=== PATIENT | female | born 1995 | race Hispanic/Latino ===

== ENCOUNTER 2017-12-24 16:37 | Inpatient (IN) | payer MEDICAID, OTHER ==
[2017-12-04 18:22] VITALS: BMI 32.8
[2017-12-24] MEDS ORDERED: Lactated Ringer's 1,000 ML IV ONE ×2 (17:29→19:01)
[2017-12-24 18:07] LABS: BASO % 0.2 % (0.0-2.0); EOS # 0.1 K/uL (0.0-0.7); EOS % 0.7 % (0.0-4.0); HEMOGLOBIN 11.2 g/dL (12.0-16.0); LYMPH # 2.1 K/uL (1.0-4.3); LYMPH % 19.9 % (20.0-40.0); MEAN CELL VOLUME 91.1 fl (81.0-99.0); MEAN CORPUSCULAR HEMOGLOBIN 31.2 pg (27.0-31.0); MEAN CORPUSCULAR HGB CONC 34.2 g/dL (33.0-37.0); MEAN PLATELET VOLUME 9.4 fl (7.2-11.7); MONO # 0.8 K/uL (0.0-0.8); NEUT # 7.5 K/uL (1.8-7.0); NEUT % 71.2 % (50.0-75.0); RBC 3.58 Mil/uL (3.80-5.20); RED CELL DISTRIBUTION WIDTH 13.3 % (11.5-14.5); WHITE BLOOD COUNT 10.5 K/uL (4.8-10.8)
[2017-12-24 18:27] LABS: SQUAMOUS EPITHIAL 18 /hpf (0-5); URINE BILIRUBIN NEGATIVE (NEGATIVE); URINE BLOOD NEGATIVE (NEGATIVE); URINE CLARITY CLOUDY (Clear); URINE COLOR AMBER (YELLOW); URINE GLUCOSE (UA) NEG (Normal); URINE LEUKOCYTE ESTERASE NEG Leu/uL (Negative); URINE PROTEIN NEGATIVE (NEGATIVE)
[2017-12-24] MEDS ORDERED: Magnesium Sulfate 4 gm/100 ml 4 GM/100 ML BAG IVPB ONE ×2 (19:34→22:02)
[2017-12-24] MEDS ORDERED: Magnesium Sulfate 4 gm/100 ml 4 GM/100 ML BAG IV ONE (19:41)
[2017-12-24] MEDS ORDERED: Magnesium Sul 40GM/1L SW 40 GM/1,000 ML ML IV ONE (19:48)
[2017-12-24] MEDS: Betamethasone Soluspan 30 mg/5mL Inj Susp IM SCH (21:12)
[2017-12-24] MEDS: Lactated Ringer's 1,000 ML IV SCH (22:00)
[2017-12-24 22:32] VITALS: PULSE 80
[2017-12-25] MEDS: Lactated Ringer's 1,000 ML IV SCH (11:29)
--- NOTE | 2017-12-25 11:45 | US ---
Date of service: 12/24/2017 PROCEDURE: Limited pelvic ultrasound HISTORY: Cervical Length COMPARISON: 09/22/2015. TECHNIQUE: Standard protocol for this study/examination. FINDINGS: Closed cervix measuring 3.84 cm in length. IMPRESSION: Cervical length 3.84 cm. Closed cervix. Concordant findings (preliminary report) provided by [facility].
[2017-12-25] MEDS: Betamethasone Soluspan 30 mg/5mL Inj Susp IM SCH (20:17)
[2017-12-26 00:48] VITALS: BP 136/75; RESP 20; TEMP 97.7; O2SAT 99
== END 2017-12-25 20:30 | disposition home or self-care (01) | DRG 886 ==
LOC: H.EROB2 16:37 → H.L&D 20:19
PROVIDERS: ADMIT Obstetrics & Gynecology Gynecology; ATTEND Obstetrics & Gynecology Gynecology
PROC: 4A1HXCZ Monitoring of Products of Conception, Cardiac Rate, External Approach (ICD-10-PCS; principal; 2017-12-24)
DX: O34.211 Maternal care for low transverse scar from previous cesarean delivery (principal); O46.93 Antepartum hemorrhage, unspecified, third trimester; N85.8 Other specified noninflammatory disorders of uterus; Z3A.32 32 weeks gestation of pregnancy; O62.8 Other abnormalities of forces of labor